=== PATIENT | female | born 1940 | race Two or more races ===

== ENCOUNTER 2021-10-09 06:30 | Day surgery (SDC) | payer OTHER ==
[~2021-10-09 06:30] MED LIST: COZAAR50 MG PO; SIMVASTA PO; SINGULAIR10 MG PO; SYNTHROID75 MCG PO
== END 2021-10-09 15:05 | disposition home or self-care (01) ==
LOC: CIR.AMB 06:30
PROVIDERS: ATTEND Surgery
DX: D05.11 Intraductal carcinoma in situ of right breast (principal); Z20.822 Contact with and (suspected) exposure to COVID-19